=== PATIENT | female | born 1960 | race Caucasian/White ===

== ENCOUNTER → 2021-01-12 | Outpatient (CLI) | payer OTHER ==
[~2021-01-12] MED LIST: NAPROXEN500 MG PO
[2021-01-12 13:13] LABS: HEMOGLOBIN 14.1 gm/dl (12.3-15.3); RED BLOOD COUNT 4.34 M/UL (4.00-5.10); WHITE BLOOD COUNT 11.7 K/UL (4.5-11.0)
[2021-01-12 13:50] LABS: BUN/CREATININE RATIO 18 (0-10)
== END ==
LOC: OPSV2 12:00 → EDSTATUS 12:00 → OPSV2 12:26
PROVIDERS: Orthopaedic Surgery
DX: Z01.818 Encounter for other preprocedural examination (principal); M16.12 Unilateral primary osteoarthritis, left hip
CPT/HCPCS: 80048; 85025; 93005

== ENCOUNTER → 2021-01-24 | Outpatient (CLI) | payer OTHER ==
[~2021-01-24] MED LIST changes: +HYDROCODON-ACE1 EAC4 PO; +TYLENOL EXTRA500 MG PO
[2021-01-24 12:09] LABS: BUN/CREATININE RATIO 17 (0-10)
== END ==
LOC: LAB 11:32
PROVIDERS: Orthopaedic Surgery
DX: Z01.812 Encounter for preprocedural laboratory examination (principal)
CPT/HCPCS: 80048; 86850; 86900; 86901

== ENCOUNTER 2021-01-25 05:12 | Inpatient (IN) | payer OTHER ==
[~2021-01-25] VITALS: Ht 157.5 cm; Wt 71.7 kg
[~2021-01-25 05:12] MED LIST changes: -HYDROCODON-ACE1 EAC4 PO; -TYLENOL EXTRA500 MG PO
[2021-01-25] MEDS ORDERED: TYLENOL EXTRA500 MG PO (06:21)
[2021-01-25] MEDS ORDERED: HYDROCODON-ACE1 EAC4 PO (11:42)
[2021-01-26 11:27] LABS: HEMOGLOBIN 11.5 gm/dl (12.3-15.3); RED BLOOD COUNT 3.66 M/UL (4.00-5.10); WHITE BLOOD COUNT 21.4 K/UL (4.5-11.0)
[2021-01-27 02:25] LABS: HEMOGLOBIN 10.9 gm/dl (12.3-15.3); RED BLOOD COUNT 3.48 M/UL (4.00-5.10); WHITE BLOOD COUNT 20.7 K/UL (4.5-11.0)
[2021-01-27 02:42] LABS: BUN/CREATININE RATIO 12 (0-10)
[2021-01-27] MEDS ORDERED: NAPROXEN500 MG PO (13:34)
[2021-01-27] MEDS ORDERED: TYLENOL EXTRA500 MG PO (13:35)
[2021-01-27] MEDS ORDERED: HYDROCODON-ACE1 EAC4 PO (13:35)
[2021-01-27] MEDS ORDERED: ALBUTEROL2.5 MG/3 M INH (13:36)
--- NOTE | 2021-01-27 18:36 | NUR ---
POLAR ICE ON Q2H OFF Q2H PER MD ORDERS
[2021-01-28 06:01] LABS: HEMOGLOBIN 10.9 gm/dl (12.3-15.3); RED BLOOD COUNT 3.46 M/UL (4.00-5.10); WHITE BLOOD COUNT 16.2 K/UL (4.5-11.0)
[2021-01-28 06:26] LABS: BUN/CREATININE RATIO 19 (0-10)
[2021-01-29 07:08] LABS: HEMOGLOBIN 10.6 gm/dl (12.3-15.3); RED BLOOD COUNT 3.44 M/UL (4.00-5.10); WHITE BLOOD COUNT 14.3 K/UL (4.5-11.0)
[2021-01-29 07:24] LABS: BUN/CREATININE RATIO 18 (0-10)
[2021-01-29] MEDS ORDERED: LEVOFLOXACIN750 MG PO (09:52)
== END 2021-01-29 14:38 | DRG 469 ==
LOC: OR 05:12 → EDSTATUS 07:30 → OR 07:30 → M/S 12:07 → OR 12:07 → M/S 01-27 12:39
PROVIDERS: Internal Medicine; Nurse Practitioner Family; Physician Assistant; ADMIT Orthopaedic Surgery
PROC: 0SRB04A Replacement of Left Hip Joint with Ceramic on Polyethylene Synthetic Substitute, Uncemented, Open Approach (ICD-10-PCS; principal; 2021-01-25 08:45)
DX: M16.12 Unilateral primary osteoarthritis, left hip (principal); J69.0 Pneumonitis due to inhalation of food and vomit; Z20.822 Contact with and (suspected) exposure to COVID-19; J96.01 Acute respiratory failure with hypoxia; J98.11 Atelectasis; E87.1 Hypo-osmolality and hyponatremia; G89.29 Other chronic pain; E78.5 Hyperlipidemia, unspecified; K21.9 Gastro-esophageal reflux disease without esophagitis; G40.909 Epilepsy, unspecified, not intractable, without status epilepticus; F41.9 Anxiety disorder, unspecified; F32.A Depression, unspecified; J43.9 Emphysema, unspecified; R21 Rash and other nonspecific skin eruption; Z90.49 Acquired absence of other specified parts of digestive tract; Z88.0 Allergy status to penicillin; Z82.49 Family history of ischemic heart disease and other diseases of the circulatory system; Z83.3 Family history of diabetes mellitus; Z80.8 Family history of malignant neoplasm of other organs or systems; Q65.89 Other specified congenital deformities of hip; Z87.11 Personal history of peptic ulcer disease; Z56.0 Unemployment, unspecified; Z98.890 Other specified postprocedural states; Z87.891 Personal history of nicotine dependence
CPT/HCPCS: 36415; 71046; 72170; 73501; 76000; 76705; 80048; 80053; 80076; 85025; 85027; 87040; 94640; 94664; 94760; 97110-GP-CQ; 97116-GP-CQ; 97161; 97166; 97530-GP-CQ; 97535; C1713; C1776; J0171; J0690; J0692; J1100; J1170; J1956; J2001; J2250; J2270; J2370; J2405; J2704; J2795; J3010; J3370; J7030; J7050; J7120; Q9967; U0002